=== PATIENT | female | born 1980 | race Asian ===

== ENCOUNTER 2021-08-03 12:38 | Outpatient (CLI) | payer OTHER ==
--- NOTE | 2021-08-12 06:31 | Mammography Report ---
BILATERAL DIGITAL SCREENING MAMMOGRAM 3D/2D: 08/03/2021 CLINICAL: Routine screening. No prior exams were available for comparison. The tissue of both breasts is extremely dense, which l owers the sensitivity of mammography. There is an oval equal density focal asymmetry with an indistinct margin in the right breast at 6 o'c lock posterior depth. No other significant masses, calcifications, or other findings are seen in either breast. IMPRESSION: INCOMPLETE: NEEDS ADDITIONAL IMAGING EVALUATION The oval equal density focal asymmetry in the right breast is indeterminate. Mediolateral and spot c ompression views as well as additional views with possible ultrasound are recommended. This exam was interpreted at Station ID: [id number]. NOTE: For mammograms, a report in lay terms will be sent to the patient. Approximately 15% of breast malignancies will not be visualized mammographically. In the management of a palpable breast mass, a negative mammogram must not discourage biopsy of a clinically suspicious lesion. Electronically Signed By: William Sánchez M.D. [email or web address]/[email or web address]:08/11/2021 09:22:52 ACR BI-RADS Category 0: Incomplete 3340F PARENCHYMAL PATTERN: (VD) - The breast(s) demonstrate(s) extremely dense parenchyma, limiting the sen sitivity of mammography. BI-RADS CATEGORY: (0) - 0 Mammo and [place] [id number] Immediate follow-up LATERALITY: (B)
== END 2021-08-03 12:39 | disposition home or self-care (01) ==
LOC: DI.N 12:38
DX: Z12.31 Encounter for screening mammogram for malignant neoplasm of breast (principal); R92.8 Other abnormal and inconclusive findings on diagnostic imaging of breast